=== PATIENT | female | born 1950 | race African-American/Black ===

== ENCOUNTER 2022-11-09 03:45 | Emergency (ER) | payer OTHER, MEDICAID ==
[~2022-11-09] VITALS: Ht 165.1 cm; Wt 75.0 kg
[2022-11-09] MEDS ORDERED: METHYLPREDNISOLONE SOD SUCC 125 MG/2 ML VIAL IV STA (04:03)
[2022-11-09] MEDS ORDERED: ONDANSETRON HCL 4MG/2ML INJ IV STA (04:03)
[2022-11-09] MEDS ORDERED: IPRATROPIUM BROMIDE (0.02%) 0.5MG/2.5ML NEB HHN STA (04:03)
[2022-11-09] MEDS ORDERED: MAGNESIUM 2 G PREMIX 50 ML IV ONE (04:15)
[2022-11-09] MEDS: ALBUTEROL (0.083%) 2.5MG/3ML NEB HHN SCH ×3 (04:16→06:50)
[2022-11-09] MEDS ORDERED: HYDROCODONE/ACETAMINOPHEN 5/325MG TABLET PO ONE (04:30)
[2022-11-09 04:58] LABS: CHLORIDE 99 mEq/L (98-107)
[2022-11-09 05:03] LABS: BASOPHILS % 0.4 % (0.0-2.0); HEMATOCRIT. 34.3 % (36.0-48.0); HEMOGLOBIN. 11.4 g/dL (12.0-16.0); LYMPHOCYTES % 36.1 % (20.0-50.0); MEAN CORPUSCULAR HEMOGLOBIN 30.6 pg (28.0-32.0); MEAN CORPUSCULAR VOLUME 92.4 fL (81.0-99.0); MEAN PLATELET VOLUME 9.1 fl (7.4-10.4); MONOCYTES % 12.2 % (2.0-8.0); NEUTROPHILS % 49.3 % (40.0-76.0); PLATELET 178 x1000/uL (130-400); RED BLOOD CELL COUNT 3.72 mill/uL (4.2-5.4); RED CELL DISTRIBUTION WIDTH 13.9 % (11.6-14.6)
[2022-11-09] MEDS ORDERED: IOHEXOL-300 100 ML BOTTLE ONE (07:07)
[2022-11-09 09:12] LABS: D-DIMER 0.29 mg/L FEU (<0.50); PARTIAL THROMBOPLASTIN TIME 25.1 sec (23.4-31.0); PROTHROMBIN TIME 10.9 sec (9.6-11.0)
[2022-11-09 14:35] VITALS: BP 152/75
== END 2022-11-09 15:08 | disposition short-term general hospital (02) ==
LOC: ER 03:45
DX: J44.1 Chronic obstructive pulmonary disease with (acute) exacerbation (principal); Z20.822 Contact with and (suspected) exposure to COVID-19
CPT/HCPCS: 36415; 71045; 71275; 80053; 83605; 83880; 84484; 85025; 85379; 85610; 85730; 87040; 87426; 93970; 94640; 96365; 96366; 96375; 99291; C9803; J2405; J2930; J3475; Q9967